=== PATIENT | female | born 1995 | race Caucasian/White ===

== ENCOUNTER → 2017-02-26 | Outpatient (REF) | payer BC | LOC: M SFHCWAGY 10:24 | PROVIDERS: ATTEND Nurse Practitioner Women's Health | DX: Z12.4 Encounter for screening for malignant neoplasm of cervix (principal) | CPT/HCPCS: 87491; 87591; G0123 ==

== ENCOUNTER → 2017-05-01 | Outpatient (REF) | payer BC | LOC: M LAB REF 08:11 | PROVIDERS: ATTEND Physician Assistant | DX: R30.0 Dysuria (principal) ==

== ENCOUNTER → 2017-09-29 | Outpatient (CLI) | payer BC ==
--- NOTE | 2017-09-29 19:31 | REP ---
Clinical: Chronic nonproductive cough for 1 month . Comparison: None . Technique: PA and lateral. Findings: The mediastinum and cardiac silhouette are normal. The lung bundy are clear and without acute consolidation, effusion, or pneumothorax. The skeletal structures are intact and normal. Impression: 1. No acute cardiopulmonary process. Signed by Memo Balderas MD 09/29/2017 04:22 P
== END ==
LOC: M ADAMS 10:35
PROVIDERS: ATTEND Physician Assistant Medical
DX: J20.9 Acute bronchitis, unspecified (principal)

== ENCOUNTER → 2017-09-29 | Outpatient (REF) | payer BC ==
[2017-09-29 13:10] LABS: CONTROL LINE MONO RF C INT CTR LINE PRESENT
[2017-09-29 13:13] LABS: BASO % 0.4 % (0.0-1.0); EOS # 0.2 10^3/uL (0.0-0.50); EOS % 1.8 % (0.0-3.0); IMMATURE GRANULOCYTE % 0.3 % (0-0); LYMPH # 2.5 10^3/uL (1.5-6.5); LYMPH % 23.2 % (24.0-44.0); MEAN CORPUSCULAR HEMOGLOBIN 29.8 pg (27.0-33.0); MEAN CORPUSCULAR VOLUME 87.5 fl (80.0-96.0); MONO # 0.5 10^3/uL (0.0-0.8); NEUTROPHILS # 7.4 10^3/uL (1.8-7.7); NEUTROPHILS % 69.3 % (36.0-66.0); PLATELET COUNT, AUTOMATED 281 10^3/uL (150-450); RED CELL DISTRIBUTION WIDTH 11.9 % (11.5-14.5); WHITE BLOOD COUNT 10.7 10^3/uL (4.0-10.0)
== END ==
LOC: M LABDRWAD 12:22
PROVIDERS: ATTEND Physician Assistant Medical
DX: J06.9 Acute upper respiratory infection, unspecified (principal)

== ENCOUNTER → 2017-12-05 | Outpatient (REF) | payer BC | LOC: M LAB REF 17:34 | DX: J02.9 Acute pharyngitis, unspecified (principal) | CPT/HCPCS: 87081 ==

== ENCOUNTER → 2018-09-14 | Outpatient (REF) | payer BC ==
[2018-09-14 15:51] LABS: CHLAMYDIA DNA AMPLIFICATION NEGATIVE (NEGATIVE); GC DNA AMPLIFICATION NEGATIVE (NEGATIVE)
== END ==
LOC: M SFHCWAGY 12:27
DX: Z11.3 Encounter for screening for infections with a predominantly sexual mode of transmission (principal)
CPT/HCPCS: 87591

== ENCOUNTER → 2018-12-28 | Outpatient (REF) | payer BC ==
[2018-12-28 15:19] LABS: CHLAMYDIA DNA AMPLIFICATION NEGATIVE (NEGATIVE); GC DNA AMPLIFICATION NEGATIVE (NEGATIVE)
== END ==
LOC: M LAB REF 12:14
PROVIDERS: ATTEND Nurse Practitioner Family
DX: Z11.3 Encounter for screening for infections with a predominantly sexual mode of transmission (principal)

== ENCOUNTER → 2019-10-02 | Outpatient (REF) | payer BC | LOC: M LAB REF 09:26 | PROVIDERS: ATTEND Physician Assistant | DX: J02.0 Streptococcal pharyngitis (principal) ==

== ENCOUNTER → 2020-09-16 | Outpatient (REF) | payer BC | LOC: M SFHCWAGY 13:21 | PROVIDERS: ATTEND Nurse Practitioner Women's Health | DX: Z12.4 Encounter for screening for malignant neoplasm of cervix (principal) ==

== ENCOUNTER → 2021-01-23 | Outpatient (REF) | payer BC ==
[2021-01-23 13:48] LABS: CHLAMYDIA DNA AMPLIFICATION NEGATIVE (NEGATIVE); GC DNA AMPLIFICATION NEGATIVE (NEGATIVE)
== END ==
LOC: M SFHCWAGY 09:54
PROVIDERS: ATTEND Nurse Practitioner Women's Health
DX: Z11.3 Encounter for screening for infections with a predominantly sexual mode of transmission (principal)

== ENCOUNTER → 2021-05-14 | Outpatient (REF) | payer BC ==
[2021-05-14 20:42] LABS: GC DNA AMPLIFICATION NEGATIVE (NEGATIVE)
== END ==
LOC: M SFHCWAGY 17:48
PROVIDERS: ATTEND Nurse Practitioner Women's Health
DX: Z11.3 Encounter for screening for infections with a predominantly sexual mode of transmission (principal)

== ENCOUNTER → 2021-07-02 | Outpatient (CLI) | payer BC ==
--- NOTE | 2021-07-02 09:59 | REP ---
INDICATION: SHORTNESS OF BREATH. COMPARISON: 09/29/2017 TECHNIQUE: PA and lateral FINDINGS: The superior mediastinal structures are midline. The cardiac silhouette is unremarkable in size, shape, and position. The diaphragmatic surfaces of the lungs are regular, and the costophrenic angles are clear. The pulmonary bundy are clear. The imaged osseous structures are intact. IMPRESSION: There is no acute cardiopulmonary disease. <Electronically signed by Blue Garcia > 07/02/21 0942
== END ==
LOC: M PLAIMG 09:13
PROVIDERS: ATTEND Physician Assistant
DX: R06.02 Shortness of breath (principal); Z86.16 Personal history of COVID-19

== ENCOUNTER → 2021-09-10 | Outpatient (REF) | payer BC ==
[2021-09-11 13:07] LABS: GC DNA AMPLIFICATION NEGATIVE (NEGATIVE)
== END ==
LOC: M SFHCWAGY 10:17
PROVIDERS: ATTEND Nurse Practitioner Women's Health
DX: Z11.3 Encounter for screening for infections with a predominantly sexual mode of transmission (principal); R35.0 Frequency of micturition

== ENCOUNTER 2021-10-09 09:57 | Emergency (ER) | payer BC, MEDICAID ==
[~2021-10-09] VITALS: Ht 162.6 cm; Wt 54.6 kg
[2021-10-09 09:58] VITALS: BP 133/75
[2021-10-09] MEDS ORDERED: PRED10TA2 (10:19)
[2021-10-09] MEDS ORDERED: HYDR-643 (10:19)
[2021-10-09] MEDS ORDERED: LORA-674 PO (10:22)
[2021-10-09] MEDS ORDERED: TRIA1OI TOP (12:39)
== END 2021-10-09 12:51 | disposition home or self-care (01) ==
LOC: M ED 09:57
DX: R21 Rash and other nonspecific skin eruption (principal)

== ENCOUNTER → 2021-10-30 | Outpatient (REF) | payer MEDICAID, OTHER ==
[~2021-10-30] MED LIST: HYDR-643; LORA-674 PO; PRED10TA2; TRIA1OI TOP
[2021-10-30 21:32] LABS: APPEARANCE, URINE CLEAR (CLEAR); BACTERIA, URINE AUTO 1+ (NEGATIVE); BILIRUBIN, URINE AUTO NEGATIVE (NEGATIVE); BLOOD, URINE BLOOD 3+ (NEGATIVE); GLUCOSE, URINE (UA) AUTO NEGATIVE (NEGATIVE); KETONE, URINE AUTO NEGATIVE (NEGATIVE); LEUKOCYTE ESTERASE, URINE AUTO 3+ (NEGATIVE); NITRITE, URINE AUTO NEGATIVE (NEGATIVE); PROTEIN, URINE AUTO NEGATIVE (NEGATIVE); RBC, URINE AUTO 4 /HPF (0-3); SPECIFIC GRAVITY URINE AUTO 1.001 (1.002-1.035); SQUAMOUS EPITHELIAL CELL UR AU 0 /HPF (0-6); UROBILINOGEN, URINE AUTO 0.2 mg/dL (0.0-2.0); WBC, URINE AUTO 17 /HPF (0-3)
[2021-10-30 21:43] LABS: COLOR, URINE STRAW (YELLOW); MUCUS, URINE SMALL (NEGATIVE)
== END ==
LOC: M LAB REF 21:16
PROVIDERS: ATTEND Physician Assistant
DX: N39.0 Urinary tract infection, site not specified (principal)

== ENCOUNTER → 2021-10-31 | Outpatient (CLI) | payer OTHER ==
[2021-10-31 14:41] LABS: HEPATITIS B SURFACE ANTIGEN NEGATIVE (NEGATIVE); HEPATITIS C VIRUS ABY INDEX < 0.0 INDEX (<0.8); HIV 1&2 SCREEN CENTAUR NEGATIVE (NEGATIVE)
== END ==
LOC: M PLALAB 11:18
PROVIDERS: ATTEND Advanced Practice Midwife
DX: Z11.3 Encounter for screening for infections with a predominantly sexual mode of transmission (principal)

== ENCOUNTER → 2021-12-09 | Outpatient (REF) | payer OTHER ==
[2021-12-09 23:23] LABS: GC DNA AMPLIFICATION NEGATIVE (NEGATIVE)
== END ==
LOC: M LAB REF 21:30
PROVIDERS: ATTEND Physician Assistant
DX: R30.0 Dysuria (principal)

== ENCOUNTER → 2021-12-24 | Outpatient (REF) | payer OTHER ==
[2021-12-24 21:52] LABS: APPEARANCE, URINE CLEAR (CLEAR); BACTERIA, URINE AUTO NEGATIVE (NEGATIVE); BILIRUBIN, URINE AUTO NEGATIVE (NEGATIVE); BLOOD, URINE BLOOD NEGATIVE (NEGATIVE); COLOR, URINE YELLOW (YELLOW); GLUCOSE, URINE (UA) AUTO NEGATIVE (NEGATIVE); KETONE, URINE AUTO NEGATIVE (NEGATIVE); LEUKOCYTE ESTERASE, URINE AUTO NEGATIVE (NEGATIVE); MUCUS, URINE SMALL (NEGATIVE); NITRITE, URINE AUTO NEGATIVE (NEGATIVE); PROTEIN, URINE AUTO NEGATIVE (NEGATIVE); RBC, URINE AUTO 0 /HPF (0-3); SPECIFIC GRAVITY URINE AUTO 1.011 (1.002-1.035); SQUAMOUS EPITHELIAL CELL UR AU 1 /HPF (0-6); UROBILINOGEN, URINE AUTO 0.2 mg/dL (0.0-2.0); WBC, URINE AUTO 1 /HPF (0-3)
== END ==
LOC: M LAB REF 21:34
PROVIDERS: ATTEND Physician Assistant
DX: N89.8 Other specified noninflammatory disorders of vagina (principal)

== ENCOUNTER → 2022-01-02 | Outpatient (CLI) | payer OTHER ==
[2022-01-02 14:33] LABS: HEPATITIS B CORE ANTIBODY IGM NEGATIVE (NEGATIVE); HEPATITIS B SURFACE ANTIGEN NEGATIVE (NEGATIVE); HEPATITIS C VIRUS ABY INDEX 0.2 INDEX (<0.8); HIV 1&2 SCREEN CENTAUR NEGATIVE (NEGATIVE)
[2022-01-02 15:37] LABS: GC DNA AMPLIFICATION NEGATIVE (NEGATIVE)
== END ==
LOC: M PLALAB 09:23
PROVIDERS: ATTEND Obstetrics & Gynecology
DX: Z01.419 Encounter for gynecological examination (general) (routine) without abnormal findings (principal)
CPT/HCPCS: 36415; 86705; 86709; 86780; 86803; 87340; 87389; 87810; 87850; G0123

== ENCOUNTER → 2022-01-02 | Outpatient (REF) | payer OTHER ==
[~2022-01-02] MED LIST changes: +MACR100C43 PO
== END ==
LOC: M PLALAB 10:16
PROVIDERS: ATTEND Obstetrics & Gynecology
DX: Z12.4 Encounter for screening for malignant neoplasm of cervix (principal)

== ENCOUNTER 2022-01-07 23:53 | Emergency (ER) | payer OTHER ==
[~2022-01-07] VITALS: Ht 162.6 cm; Wt 54.5 kg
[~2022-01-07 23:53] MED LIST changes: -MACR100C43 PO
[2022-01-08 03:07] VITALS: BP 113/68
[2022-01-08] MEDS ORDERED: MACR100C43 PO (03:20)
[2022-01-08] MEDS ORDERED: NITROFURANTOIN (MACROBID) 100 MG CAP PO ONE (03:20)
== END 2022-01-08 04:06 | disposition home or self-care (01) ==
LOC: M ED 23:53
DX: N39.0 Urinary tract infection, site not specified (principal)

== ENCOUNTER → 2022-01-12 | Outpatient (CLI) | payer OTHER ==
[~2022-01-12] MED LIST changes: +MACR100C43 PO
== END ==
LOC: M WUC 15:06
PROVIDERS: ATTEND Physician Assistant
DX: M54.32 Sciatica, left side (principal)

== ENCOUNTER → 2022-03-25 | Outpatient (REF) | payer OTHER | LOC: M LAB REF 21:06 | PROVIDERS: ATTEND Physician Assistant | DX: J02.9 Acute pharyngitis, unspecified (principal); R50.9 Fever, unspecified ==

== ENCOUNTER → 2022-08-13 | Outpatient (CLI) | payer OTHER | LOC: M WUC 15:20 | PROVIDERS: ATTEND Physician Assistant | DX: M25.572 Pain in left ankle and joints of left foot (principal) ==

== ENCOUNTER → 2023-01-04 | Outpatient (CLI) | payer OTHER ==
[2023-01-04 19:35] LABS: HEPATITIS B SURFACE ANTIGEN NEGATIVE (NEGATIVE)
[2023-01-04 19:36] LABS: GC DNA AMPLIFICATION NEGATIVE (NEGATIVE)
[2023-01-04 19:48] LABS: HIV 1&2 SCREEN CENTAUR NEGATIVE (NEGATIVE)
[2023-01-04 19:55] LABS: HEPATITIS B CORE ANTIBODY IGM NEGATIVE (NEGATIVE)
[2023-01-04 19:56] LABS: HEPATITIS C VIRUS ABY INDEX 0.1 INDEX (<0.8)
== END ==
LOC: M PLALAB 16:03
PROVIDERS: ATTEND Obstetrics & Gynecology
DX: Z76.89 Persons encountering health services in other specified circumstances (principal)

== ENCOUNTER → 2023-01-26 | Outpatient (CLI) | payer OTHER | LOC: M WHC 07:24 | PROVIDERS: ATTEND Obstetrics & Gynecology | DX: N63.20 Unspecified lump in the left breast, unspecified quadrant (principal) ==

== ENCOUNTER → 2023-08-10 | Outpatient (REF) | payer OTHER ==
[~2023-08-10] MED LIST changes: +LORA-1041 PO; -LORA-674 PO
== END ==
LOC: M WUC 19:13
PROVIDERS: ATTEND Physician Assistant
DX: R30.0 Dysuria (principal)

== ENCOUNTER → 2023-10-29 | Outpatient (REF) | payer OTHER ==
[2023-10-29 11:07] LABS: HEMATOCRIT 38.9 % (36.0-47.0); HEMOGLOBIN 12.9 g/dl (12.0-15.5); MEAN CORPUSCULAR HEMOGLOBIN 29.9 pg (27.0-33.0); MEAN CORPUSCULAR HGB CONC 33.2 g/dl (32.0-36.5); MEAN CORPUSCULAR VOLUME 90.3 fl (80.0-96.0); PLATELET COUNT, AUTOMATED 233 10^3/uL (150-450); RED BLOOD COUNT 4.31 10^6/uL (4.00-5.40); WHITE BLOOD COUNT 4.6 10^3/uL (4.0-10.0)
[2023-10-29 11:24] LABS: ERYTHROCYTE SEDIMENTATION RATE 10 mm/hr (0-20)
[2023-10-29 11:34] LABS: C REACTIVE PROTEIN QUANTITATIV < 0.40 MG/DL (<1.0)
[2023-10-29 11:35] LABS: ALBUMIN 3.5 G/DL (3.2-5.2); ALKALINE PHOSPHATASE 78 U/L (46-116); ALT/SGPT 13 U/L (7.0-40); AST/SGOT 10 U/L (<34); BILIRUBIN,TOTAL 0.7 MG/DL (0.3-1.2); BLOOD UREA NITROGEN 10 MG/DL (9-23); CALCIUM LEVEL 8.6 MG/DL (8.5-10.1); CARBON DIOXIDE LEVEL 28 MMOL/L (20-31); CHLORIDE LEVEL 106 MMOL/L (98-107); CREATININE FOR GFR 0.76 MG/DL (0.55-1.30); GLOMERULAR FILTRATION RATE > 60.0 (>60); GLUCOSE, FASTING 85 MG/DL (60-100); POTASSIUM SERUM 4.3 MMOL/L (3.5-5.1); SODIUM LEVEL 139 MMOL/L (136-145); TOTAL PROTEIN 6.9 G/DL (5.7-8.2)
[2023-10-29 11:36] LABS: RHEUMATOID FACTOR QUANT < 3.5 IU/ML (<14)
[2023-10-29 11:38] LABS: THYROID STIMULATING HORMONE 1.424 uIU/ML (0.55-4.78)
[2023-10-30 16:11] LABS: ANTINUCLEAR ANTIBODIES DIRECT Negative (Negative); EBV VIRAL CAPSID AG IgM <36.0 U/mL (0.0-35.9)
== END ==
LOC: M PLALAB 10:05
PROVIDERS: ATTEND Physician Assistant
DX: M13.0 Polyarthritis, unspecified (principal); R53.81 Other malaise; R63.4 Abnormal weight loss; R61 Generalized hyperhidrosis

== ENCOUNTER → 2024-01-10 | Outpatient (REF) | payer OTHER | LOC: M PLALAB 16:11 | PROVIDERS: ATTEND Obstetrics & Gynecology | DX: Z12.4 Encounter for screening for malignant neoplasm of cervix (principal); Z20.2 Contact with and (suspected) exposure to infections with a predominantly sexual mode of transmission ==

== ENCOUNTER → 2024-01-10 | Outpatient (CLI) | payer OTHER, SELFPAY ==
[2024-01-10 17:58] LABS: HIV 1&2 SCREEN NEGATIVE (NEGATIVE)
[2024-01-10 18:06] LABS: HEPATITIS B CORE ANTIBODY IGM NEGATIVE (NEGATIVE); HEPATITIS C VIRUS ABY INDEX 0.02 INDEX (<0.8)
[2024-01-10 19:19] LABS: Trichomonas vaginalis (AMP) NOT DETECTED (NEGATIVE)
[2024-01-10 19:40] LABS: GC DNA AMPLIFICATION NEGATIVE (NEGATIVE)
== END ==
LOC: M PLALAB 14:28
PROVIDERS: ATTEND Obstetrics & Gynecology
DX: Z20.2 Contact with and (suspected) exposure to infections with a predominantly sexual mode of transmission (principal)

== ENCOUNTER → 2024-03-02 | Outpatient (CLI) | payer OTHER | LOC: M WUC 14:26 | PROVIDERS: ATTEND Physician Assistant | DX: M54.2 Cervicalgia (principal); R25.1 Tremor, unspecified ==

== ENCOUNTER → 2024-03-20 | Outpatient (CLI) | payer OTHER ==
[2024-03-20 11:48] LABS: HEMATOCRIT 41.6 % (36.0-47.0); HEMOGLOBIN 13.5 g/dl (12.0-15.5); MEAN CORPUSCULAR HEMOGLOBIN 29.4 pg (27.0-33.0); MEAN CORPUSCULAR HGB CONC 32.5 g/dl (32.0-36.5); MEAN CORPUSCULAR VOLUME 90.6 fl (80.0-96.0); PLATELET COUNT, AUTOMATED 239 10^3/uL (150-450); RED BLOOD COUNT 4.59 10^6/uL (4.00-5.40); WHITE BLOOD COUNT 4.5 10^3/uL (4.0-10.0)
[2024-03-20 11:53] LABS: ERYTHROCYTE SEDIMENTATION RATE 10 mm/hr (0-20)
[2024-03-20 12:13] LABS: C REACTIVE PROTEIN QUANTITATIV < 0.40 MG/DL (<1.0)
[2024-03-20 12:14] LABS: FREE T4 1.09 NG/DL (0.89-1.76)
[2024-03-20 12:15] LABS: ALBUMIN 3.8 G/DL (3.2-5.2); ALKALINE PHOSPHATASE 93 U/L (46-116); ALT/SGPT 19 U/L (7.0-40); AST/SGOT 10 U/L (<34); BILIRUBIN,TOTAL 0.5 MG/DL (0.3-1.2); BLOOD UREA NITROGEN 11 MG/DL (9-23); CALCIUM LEVEL 8.8 MG/DL (8.5-10.1); CARBON DIOXIDE LEVEL 27 MMOL/L (20-31); CHLORIDE LEVEL 106 MMOL/L (98-107); CHOLESTEROL LEVEL 161 MG/DL (<200); CHOLESTEROL RISK RATIO 2.04 (<5); GLOMERULAR FILTRATION RATE > 60.0 (>60); GLUCOSE, FASTING 91 MG/DL (60-100); HDL CHOLESTEROL 78.8 MG/DL (>40); NON-HDL-C 82.2 MG/DL; POTASSIUM SERUM 4.3 MMOL/L (3.5-5.1); SODIUM LEVEL 137 MMOL/L (136-145); THYROID STIMULATING HORMONE 1.523 uIU/ML (0.55-4.78); TOTAL PROTEIN 7.2 G/DL (5.7-8.2); TRIGLYCERIDES LEVEL 51 MG/DL (<150)
[2024-03-20 12:16] LABS: FOLATE 17.64 NG/ML (>5.4); VITAMIN B12 LEVEL 578 PG/ML (211-911)
[2024-03-20 13:56] LABS: RHEUMATOID FACTOR QUANT < 3.5 IU/ML (<14)
[2024-03-20 13:59] LABS: THYROID PEROXIDASE ANTIBODY < 28.0 U/ML (<60.0)
[2024-03-20 14:00] LABS: FREE T3 3.2 PG/ML (2.3-4.2)
[2024-03-21 13:57] LABS: EBV VIRAL CAPSID AG IgM < 36.00 U/mL (<36.00)
[2024-03-21 16:08] LABS: ANA SCREEN, IFA NEGATIVE (NEGATIVE)
[2024-03-22 02:32] LABS: CYCLIC CITRULLINATED PEPTIDE < 16 UNITS (<20)
[2024-03-22 07:18] LABS: IgG P18 AB REACTIVE; IgG P23 AB NON-REACTIVE; IgG P28 AB NON-REACTIVE; IgG P30 AB NON-REACTIVE; IgG P39 AB NON-REACTIVE; IgG P41 AB NON-REACTIVE; IgG P45 AB NON-REACTIVE; IgG P58 AB NON-REACTIVE; IgG P66 AB NON-REACTIVE; IgG P93 AB NON-REACTIVE; IgM P23 AB NON-REACTIVE; IgM P39 AB NON-REACTIVE; IgM P41 AB NON-REACTIVE; LYME IgG WB INTERPRETATION NEGATIVE (NEGATIVE); LYME IgM WB INTERPRETATION NEGATIVE (NEGATIVE)
[2024-03-23 18:17] LABS: LYME TOTAL ANTIBODY CIA <= 0.90 Index (<=0.90)
== END ==
LOC: M PLALAB 07:37
PROVIDERS: ATTEND Registered Nurse
DX: R00.2 Palpitations (principal); R20.2 Paresthesia of skin; R53.83 Other fatigue; Z13.220 Encounter for screening for lipoid disorders

== ENCOUNTER → 2024-04-03 | Outpatient (REF) | payer OTHER ==
[2024-04-03 10:37] LABS: APPEARANCE, URINE CLEAR (CLEAR); BACTERIA, URINE AUTO NEGATIVE (NEGATIVE); BILIRUBIN, URINE AUTO NEGATIVE (NEGATIVE); BLOOD, URINE BLOOD NEGATIVE (NEGATIVE); COLOR, URINE COLORLESS (YELLOW); GLUCOSE, URINE (UA) AUTO NEGATIVE (NEGATIVE); KETONE, URINE AUTO NEGATIVE (NEGATIVE); LEUKOCYTE ESTERASE, URINE AUTO TRACE (NEGATIVE); NITRITE, URINE AUTO NEGATIVE (NEGATIVE); PROTEIN, URINE AUTO NEGATIVE (NEGATIVE); RBC, URINE AUTO 0 /HPF (0-3); SPECIFIC GRAVITY URINE AUTO 1.002 (1.002-1.035); SQUAMOUS EPITHELIAL CELL UR AU 0 /HPF (0-6); UROBILINOGEN, URINE AUTO 0.2 mg/dL (0.0-2.0); WBC, URINE AUTO 1 /HPF (0-3)
== END ==
LOC: M SMT 09:35
PROVIDERS: ATTEND Physician Assistant
DX: N39.0 Urinary tract infection, site not specified (principal)

== ENCOUNTER → 2024-04-03 | Outpatient (CLI) | payer OTHER ==
[~2024-04-03] MED LIST changes: +PROHANCE 279.3MG/ML 15ML VIAL ONE
== END ==
LOC: M PLAIMG 11:15
PROVIDERS: ATTEND Registered Nurse
DX: G43.109 Migraine with aura, not intractable, without status migrainosus (principal)
CPT/HCPCS: 70553; A9576

== ENCOUNTER → 2024-04-04 | Outpatient (CLI) | payer OTHER ==
[~2024-04-04] MED LIST changes: -PROHANCE 279.3MG/ML 15ML VIAL ONE
== END ==
LOC: M EKG 08:44
PROVIDERS: ATTEND Registered Nurse
DX: R00.2 Palpitations (principal)

== ENCOUNTER → 2024-06-19 | Outpatient (CLI) | payer OTHER | LOC: M PLALAB 13:08 | PROVIDERS: ATTEND Registered Nurse | DX: R00.2 Palpitations (principal) ==

== ENCOUNTER → 2024-07-10 | Outpatient (RCR) | payer OTHER | LOC: M PT 12:05 | PROVIDERS: ATTEND Registered Nurse | DX: M26.602 Left temporomandibular joint disorder, unspecified (principal) ==

== ENCOUNTER 2024-07-26 13:18 | Outpatient (RCR) | payer OTHER | END 2024-08-10 | LOC: M PT 13:18 | PROVIDERS: ATTEND Registered Nurse | DX: M26.609 Unspecified temporomandibular joint disorder, unspecified side (principal) ==

== ENCOUNTER 2024-08-21 09:52 | Outpatient (RCR) | payer OTHER | END 2024-09-09 | LOC: M PT 09:52 | PROVIDERS: ATTEND Registered Nurse | DX: M26.602 Left temporomandibular joint disorder, unspecified (principal) ==

== ENCOUNTER → 2024-09-06 | Outpatient (CLI) | payer OTHER, SELFPAY | LOC: M WHC 08:03 | PROVIDERS: ATTEND Obstetrics & Gynecology | DX: N85.4 Malposition of uterus (principal); N94.5 Secondary dysmenorrhea ==

== ENCOUNTER 2025-01-04 14:45 | Outpatient (RCR) | payer OTHER | END 2025-01-08 | LOC: M PT 14:45 | PROVIDERS: ATTEND Psychiatry & Neurology Neurology | DX: M54.2 Cervicalgia (principal) ==

== ENCOUNTER → 2025-01-10 | Outpatient (CLI) | payer OTHER ==
[2025-01-10 15:44] LABS: HEMATOCRIT 37.1 % (36.0-47.0); HEMOGLOBIN 12.6 g/dl (12.0-15.5); MEAN CORPUSCULAR HEMOGLOBIN 29.3 pg (27.0-33.0); MEAN CORPUSCULAR VOLUME 86.3 fl (80.0-96.0); PLATELET COUNT, AUTOMATED 217 10^3/uL (150-450); WHITE BLOOD COUNT 4.9 10^3/uL (4.0-10.0)
[2025-01-10 16:00] LABS: FERRITIN 29.1 NG/ML (7.3-270.7); FREE T4 1.19 NG/DL (0.89-1.76); THYROID STIMULATING HORMONE 1.364 uIU/ML (0.55-4.78)
[2025-01-10 16:01] LABS: TOTAL 25(OH) VITAMIN D 31.1 NG/ML (20.0-100.0)
== END ==
LOC: M PLALAB 12:54
PROVIDERS: ATTEND Registered Nurse
DX: L65.9 Nonscarring hair loss, unspecified (principal); Z13.88 Encounter for screening for disorder due to exposure to contaminants

== ENCOUNTER 2025-01-31 09:52 | Outpatient (RCR) | payer OTHER | END 2025-02-07 | LOC: M PT 09:52 | PROVIDERS: ATTEND Psychiatry & Neurology Neurology | DX: M54.2 Cervicalgia (principal) ==